=== PATIENT | female | born 1995 | race African-American/Black ===

== ENCOUNTER 2018-06-22 05:01 | Emergency (ER) | payer OTHER ==
[2018-06-22 06:01] LABS: Urine Blood 3+ (NEG); Urine Glucose NEGATIVE (NEG); Urine Protein 1+ (NEG); Urine Specific Gravity 1.025 (1.005-1.030); Urine pH 6.5 (5.0-7.0)
[2018-06-22] MEDS ORDERED: NA CHLORIDE 0.9% 1,000 ML ONE ×2 (06:06→08:30)
[2018-06-22] MEDS ORDERED: KETOROLAC 30 MG/ML INJ ONE (06:06)
[2018-06-22 06:10] LABS: Absolute Lymphocytes (CBC) 1.1 K/uL (0.7-4.9); Absolute Monocytes 0.6 K/uL (0.1-1.3); Absolute Neutrophil 5.4 K/uL (1.8-8.0); Basophils % 0.3 % (0-1.3); Eosinophils % 2.2 % (0-4.4); Hematocrit 27.1 % (36.0-45.0); Lymphocytes % 15.3 % (15.3-44.8); MCV 72.6 fL (80-100); MPV 9.1 fL (7.6-11.3); Monocytes % 8.7 % (3.3-12.3); RBC Red Blood Cell Count 3.73 M/uL (3.86-4.86)
[2018-06-22 06:17] LABS: Urine Bacteria <20 /HPF (<20); Urine Culture Reflex Order REFLEXED; Urine RBC 20-50 /HPF (NONE SEEN); Urine Trichomonas PRESENT (NONE SEEN)
[2018-06-22 06:28] LABS: ALT/SGPT 16 U/L (12-78); AST/SGOT 18 U/L (15-37); Albumin 2.5 g/dL (3.4-5.0); Alkaline Phosphatase 87 U/L (45-117); BUN Blood Urea Nitrogen 8 mg/dL (7-18); Bicarbonate 23 mmol/L (21-32); Bilirubin Direct 0.1 mg/dL (0-0.2); Bilirubin Total 0.3 mg/dL (0.2-1.0); Glucose Level 89 mg/dL (74-106); Lipase 129 U/L (73-393); Potassium 3.7 mmol/L (3.5-5.1); Protein, Total 6.4 g/dL (6.4-8.2); Sodium Level 139 mmol/L (136-145)
[2018-06-22] MEDS ORDERED: metroNIDAZOLE 500 MG TABLET ONE (07:00)
[2018-06-22] MEDS ORDERED: CEFTRIAXONE/SWI 1gm 1 GM/10 ML SYR ONE (07:00)
[2018-06-22] MEDS ORDERED: ACETAMINOPHEN 500 MG TAB ONE (09:39)
--- NOTE | 2018-06-22 14:38 | ER ---
Nurse's Notes [facility] Name: Rosa Tony Age: 22 yrs Sex: Female : 1995 Arrival Date: 06/22/2018 Time: 05:04 Bed 15 Private MD: Diagnosis: Abdominal and pelvic pain Presentation: 06/22 05:09 Presenting complaint: Patient states: Deliver a baby three days ago and no is having ao back pain, side pain and headaches. Patient pain level is 6/10. Transition of care: patient was not received from another setting of care. Onset of symptoms is unknown. Risk Assessment: Do you want to hurt yourself or someone else? Patient reports no desire to harm self or others. Initial Sepsis Screen: Does the patient meet any 2 criteria? No. Patient's initial sepsis screen is negative. Does the patient have a suspected source of infection? No. Patient's initial sepsis screen is negative. Care prior to arrival: None. 05:09 Method Of Arrival: Ambulatory ao 05:30 Acuity: MALATHI 2 bb Triage Assessment: 05:13 General: pt denied having an epidural when delivering her baby 3 day ago.. jd3 LCSW: 05:13 LMP 09/22/2017 ao Historical: - Allergies: 05:12 No Known Allergies; ao - Home Meds: 05:12 Ibuprofen Oral [Active]; ao - PMHx: 05:12 None; ao - PSHx: 05:12 None; ao - Immunization history:: Adult Immunizations up to date. - Social history:: Smoking status: Patient uses tobacco products, denies chronic smoking, but will smoke occasionally. - Ebola Screening: : Patient negative for fever greater than or equal to 101.5 degrees Fahrenheit, and additional compatible Ebola Virus Disease symptoms Patient denies exposure to infectious person Patient denies travel to an Ebola-affected area in the 21 days before illness onset. Screenin:13 Abuse screen: Denies threats or abuse. Nutritional screening: No deficits noted. jd3 Tuberculosis screening: No symptoms or risk factors identified. Fall Risk Ambulatory Aid- None/Bed Rest/Nurse Assist (0 pts). Gait- Normal/Bed Rest/Wheelchair (0 pts) Mental Status- Oriented to own ability (0 pts). Total Kang Fall Scale indicates No Risk (0-24 pts). Assessment: 05:14 General: Appears in no apparent distress. uncomfortable, Behavior is cooperative, ao crying. Pain: Complains of pain in back and a headache. Neuro: Level of Consciousness is awake, alert, Oriented to person, place, time, situation, Appropriate for age Moves all extremities. Full function Speech is normal, Facial symmetry appears normal. Cardiovascular: Capillary refill < 3 seconds Patient's skin is warm and dry. Respiratory: Airway is patent Respiratory effort is even, unlabored, Respiratory pattern is regular, symmetrical. GI: No signs and/or symptoms were reported involving the gastrointestinal system. : Reports Deliver a baby three day ago. No epidural given at deliver. EENT: No signs and/or symptoms were reported regarding the EENT system. Derm: Skin is intact, Skin is pink, warm \T\ dry. normal, Skin temperature is warm. Musculoskeletal: Range of motion: intact in all extremities. 06:30 Reassessment: Patient appears in no apparent distress at this time. Patient and/or ao family updated on plan of care and expected duration. Pain level reassessed. Patient is alert, oriented x 3, equal unlabored respirations, skin warm/dry/pink. waiting on lab work. 07:13 Reassessment: Patient appears in no apparent distress at this time. Patient and/or em family updated on plan of care and expected duration. Pain level reassessed. Patient is alert, oriented x 3, equal unlabored respirations, skin warm/dry/pink. rates pain 6/10, pending ultrasound. 07:50 Reassessment: Patient appears in no apparent distress at this time. ultrasound at em bedside. 09:00 Reassessment: Patient appears in no apparent distress at this time. Patient and/or em family updated on plan of care and expected duration. Pain level reassessed. Patient is alert, oriented x 3, equal unlabored respirations, skin warm/dry/pink. 11:33 Reassessment: Patient appears in no apparent distress at this time. Patient and/or em family updated on plan of care and expected duration. Pain level reassessed. Patient is alert, oriented x 3, equal unlabored respirations, skin warm/dry/pink. pending CT of abdomen Patient states feeling better. 12:38 Reassessment: Patient appears in no apparent distress at this time. Patient and/or em family updated on plan of care and expected duration. Pain level reassessed. Patient is alert, oriented x 3, equal unlabored respirations, skin warm/dry/pink. 12:55 Reassessment: wheeled to CT;. hj Vital Signs: 05:13 BP 146 / 91; Pulse 112; Resp 16; Temp 99.2(O); Pulse Ox 100% on R/A; Weight 72.57 kg; ao Height 5 ft. 1 in. (154.94 cm); Pain 6/10; 06:30 BP 126 / 81; Pulse 98; Resp 16; Pulse Ox 100% on R/A; Pain 0/10; ao 07:13 BP 129 / 89; Pulse 101; Resp 20; Temp 99.1(O); Pulse Ox 100% on R/A; Pain 6/10; em 13:00 BP 108 / 71; Pulse 100; Resp 18; Pulse Ox 99% on R/A; em 13:58 BP 108 / 71; Pulse 101; Resp 16; Temp 98.5(O); Pulse Ox 100% ; mh5 14:56 BP 117 / 83; Pulse 101; Resp 18; Temp 99.0(O); Pulse Ox 100% on R/A; em 05:13 Body Mass Index 30.23 (72.57 kg, 154.94 cm) ao ED Course: 05:04 Patient arrived in ED. ds1 05:09 Gabriel aGrcia, RN is Primary Nurse. ao 05:11 Triage completed. ao 05:12 Arm band placed on right wrist. Patient placed in an exam room, on a stretcher, on ao pulse oximetry, Patient notified of wait time. 05:14 Patient has correct armband on for positive identification. Pulse ox on. NIBP on. ao 05:22 Zoran Cardoso MD is Attending Physician. gs 05:45 Inserted saline lock: 20 gauge in right antecubital area, using aseptic technique. ao Blood collected. 07:08 Report given to JARON Guzman. ao 07:12 Thomas Arroyo LVN is Primary Nurse. em 07:38 Attending Physician role handed off by Zoran Cardoso MD kdr 07:38 Houston Cabrera MD is Attending Physician. kdr 08:11 Ultrasound completed. Patient tolerated well. sg3 08:21 US Pelvis Complete In Process Unspecified. EDMS 12:59 Chest Angio In Process Unspecified. EDMS 13:10 Abdomen In Process Unspecified. EDMS 13:24 CT Chest For PE Angio In Process Unspecified. EDMS 15:01 No provider procedures requiring assistance completed. IV discontinued, intact, em bleeding controlled, No redness/swelling at site. Pressure dressing applied. Administered Medications: 06:09 Drug: TORadol 15 mg Route: IVP; Site: right antecubital; ao 07:00 Follow up: Response: No adverse reaction; Pain is decreased ao 06:09 Drug: NS 0.9% 1000 ml Route: IV; Rate: 1 bolus; Site: right antecubital; ao 07:00 Drug: Rocephin - (cefTRIAXone) 1 grams Route: IVPB; Infused Over: 30 mins; Site: right ao antecubital; 07:30 Follow up: Response: No adverse reaction; IV Status: Completed infusion; IV Intake: 10mlem 07:00 Drug: Flagyl 1 grams Route: PO; ao 08:32 Follow up: Response: No adverse reaction em 08:32 Drug: NS 0.9% 1000 ml Route: IV; Rate: 1 bolus; Site: right antecubital; em 14:55 Follow up: Response: No adverse reaction; IV Status: Completed infusion; IV Intake: em 1000ml Point of Care Testing: Blood Glucose: 05:59 Blood Glucose: 88 mg/dL; ao Ranges: Intake: 07:30 IV: 10ml; Total: 10ml. em 14:55 IV: 1000ml; Total: 1010ml. em Outcome: 14:37 Discharge ordered by . kdr 15:01 Discharged to home ambulatory. em 15:01 Condition: good 15:01 Discharge instructions given to patient, family, Instructed on discharge instructions, follow up and referral plans. medication usage, Demonstrated understanding of instructions, follow-up care, medications, Prescriptions given X 1. 15:03 Patient left the ED. em Signatures: Dispatcher [employer] EDMS Houston Cabrera MD MD kdr Munoz, Edgar, SECURITY INCIDENT RESPONSE SPECIALIST SECURITY INCIDENT RESPONSE SPECIALIST em Priyanka Camarena ds1 Gloria Horne RN RN Armond Key RN RN hj Ortiz, Alex, RN RN ao Martinez, Maria [facility] Zoran Cardoso MD MD gs Davies, Jonathon, RN RN jd3 Godinez, Sarah 3 Corrections: (The following items were deleted from the chart) 05:30 05:09 Acuity: MALATHI 3 ao bb
--- NOTE | 2018-06-22 14:38 | EDPHYS ---
Physician Documentation [facility] Name: Rosa Tony Age: 22 yrs Sex: Female : 1995 Arrival Date: 06/22/2018 Time: 05:04 Bed 15 Private MD: ED Physician Houston Cabrera HPI: 06/22 06:43 This 22 yrs old Black Female presents to ER via Ambulatory with complaints of ab pain. gs 06:43 The patient presents with abdominal pain in the lower abdomen. Onset: The gs symptoms/episode began/occurred yesterday. The symptoms do not radiate. Associated signs and symptoms: Pertinent positives: fever. The symptoms are described as achy. Modifying factors: The symptoms are alleviated by nothing, the symptoms are aggravated by nothing. Severity of pain: At its worst the pain was moderate in the emergency department the pain has improved mildly. The patient has not experienced similar symptoms in the past. 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 - Social history:: Smoking status: Patient uses tobacco products, denies chronic smoking, but will smoke occasionally. - Ebola Screening: : Patient negative for fever greater than or equal to 101.5 degrees Fahrenheit, and additional compatible Ebola Virus Disease symptoms Patient denies exposure to infectious person Patient denies travel to an Ebola-affected area in the 21 days before illness onset. ROS: 06:43 All other systems are negative. gs Exam: 06:43 Head/Face: Normocephalic, atraumatic. Eyes: Pupils equal round and reactive to light, gs extra-ocular motions intact. Lids and lashes normal. Conjunctiva and sclera are non-icteric and not injected. Cornea within normal limits. Periorbital areas with no swelling, redness, or edema. ENT: Nares patent. No nasal discharge, no septal abnormalities noted. Tympanic membranes are normal and external auditory canals are clear. Oropharynx with no redness, swelling, or masses, exudates, or evidence of obstruction, uvula midline. Mucous membranes moist. Neck: Trachea midline, no thyromegaly or masses palpated, and no cervical lymphadenopathy. Supple, full range of motion without nuchal rigidity, or vertebral point tenderness. No Meningismus. Chest/axilla: Normal chest wall appearance and motion. Nontender with no deformity. No lesions are appreciated. Respiratory: Lungs have equal breath sounds bilaterally, clear to auscultation and percussion. No rales, rhonchi or wheezes noted. No increased work of breathing, no retractions or nasal flaring. Back: No spinal tenderness. No costovertebral tenderness. Full range of motion. Skin: Warm, dry with normal turgor. Normal color with no rashes, no lesions, and no evidence of cellulitis. MS/ Extremity: Pulses equal, no cyanosis. Neurovascular intact. Full, normal range of motion. Neuro: Awake and alert, GCS 15, oriented to person, place, time, and situation. Cranial nerves II-XII grossly intact. Motor strength 5/5 in all extremities. Sensory grossly intact. Cerebellar exam normal. Normal gait. 06:43 Constitutional: The patient appears alert, awake. 06:43 Cardiovascular: Rate: tachycardic, Rhythm: regular, Pulses: no pulse deficits are appreciated. 06:43 Abdomen/GI: Inspection: gravid appearance, is noted, Palpation: mild abdominal tenderness, in the suprapubic area and left lower quadrant. Vital Signs: 05:13 BP 146 / 91; Pulse 112; Resp 16; Temp 99.2(O); Pulse Ox 100% on R/A; Weight 72.57 kg; ao Height 5 ft. 1 in. (154.94 cm); Pain 6/10; 06:30 BP 126 / 81; Pulse 98; Resp 16; Pulse Ox 100% on R/A; Pain 0/10; ao 07:13 BP 129 / 89; Pulse 101; Resp 20; Temp 99.1(O); Pulse Ox 100% on R/A; Pain 6/10; em 13:00 BP 108 / 71; Pulse 100; Resp 18; Pulse Ox 99% on R/A; em 13:58 BP 108 / 71; Pulse 101; Resp 16; Temp 98.5(O); Pulse Ox 100% ; mh5 14:56 BP 117 / 83; Pulse 101; Resp 18; Temp 99.0(O); Pulse Ox 100% on R/A; em 05:13 Body Mass Index 30.23 (72.57 kg, 154.94 cm) ao MDM: 05:32 Patient medically screened. gs 06:43 Differential diagnosis: non-specific abd pain, urinary tract infection, endometritis. Data reviewed: vital signs, nurses notes. Response to treatment: the patient's symptoms have markedly improved after treatment. 06/22 05:35 Order name: Urine Microscopic Only; Complete Time: 06:38 gs 06/22 05:35 Order name: Basic Metabolic Panel; Complete Time: 06:38 gs 06/22 05:35 Order name: Blood Culture Adult (2) 06/22 05:35 Order name: CBC with Diff; Complete Time: 06:38 gs 06/22 05:35 Order name: Lactate; Complete Time: 07:03 gs 06/22 05:35 Order name: LFT's; Complete Time: 06:38 06/22 05:35 Order name: Lipase; Complete Time: 06:38 gs 06/22 05:35 Order name: Procalcitonin; Complete Time: 07:03 gs 06/22 05:35 Order name: Protime (+inr); Complete Time: 06:38 gs 06/22 05:45 Order name: US Pelvis Complete 06/22 05:58 Order name: Urine Dipstick--Ancillary (enter results); Complete Time: 06:38 rg2 06/22 06:18 Order name: Urine Culture EDMS 06/22 08:24 Order name: DD; Complete Time: 12:42 kdr 06/22 10:30 Order name: CT Chest For PE Angio kdr 06/22 05:35 Order name: Accucheck; Complete Time: 05:59 gs 06/22 05:35 Order name: Cardiac monitoring; Complete Time: 05:59 gs 06/22 05:35 Order name: EKG - Nurse/Tech; Complete Time: 05:52 gs 06/22 05:35 Order name: IV Saline Lock - Large Bore; Complete Time: 05:53 gs 06/22 05:35 Order name: Labs collected and sent; Complete Time: 05:52 gs 06/22 05:35 Order name: O2 Per Protocol; Complete Time: 05:52 gs 06/22 05:35 Order name: O2 Sat Monitoring; Complete Time: 05:52 06/22 05:35 Order name: Urine Dipstick-Ancillary (obtain specimen); Complete Time: 05:52 06/22 11:10 Order name: CT Abd/Pelvis - Without Cont kdr 06/22 12:47 Order name: Chest Angio EDMS 06/22 13:07 Order name: Abdomen EDMS Administered Medications: 06:09 Drug: TORadol 15 mg Route: IVP; Site: right antecubital; ao 07:00 Follow up: Response: No adverse reaction; Pain is decreased ao 06:09 Drug: NS 0.9% 1000 ml Route: IV; Rate: 1 bolus; Site: right antecubital; ao 07:00 Drug: Rocephin - (cefTRIAXone) 1 grams Route: IVPB; Infused Over: 30 mins; Site: right ao antecubital; 07:30 Follow up: Response: No adverse reaction; IV Status: Completed infusion; IV Intake: 10mlem 07:00 Drug: Flagyl 1 grams Route: PO; ao 08:32 Follow up: Response: No adverse reaction em 08:32 Drug: NS 0.9% 1000 ml Route: IV; Rate: 1 bolus; Site: right antecubital; em 14:55 Follow up: Response: No adverse reaction; IV Status: Completed infusion; IV Intake: em 1000ml Point of Care Testing: Blood Glucose: 05:59 Blood Glucose: 88 mg/dL; ao Ranges: Critical Glucose Levels:Adult <50 mg/dl or >400 mg/dl <40 mg/dl or >180 mg/dl Disposition: 06/22/18 14:37 Discharged to Home. Impression: Abdominal and pelvic pain. - Condition is Stable. - Discharge Instructions: Abdominal Pain, Adult, [id number]. - Prescriptions for Tramadol 50 mg Oral Tablet - take 1 tablet by ORAL route every 8 hours as needed; 12 tablet. - Medication Reconciliation Form, Thank You Letter form. - Follow up: Private Physician; When: 2 - 3 days; Reason: If symptoms return, Further diagnostic work-up, Recheck today's complaints, Continuance of care, Re-evaluation by your physician. - Problem is new. - Symptoms have improved. Signatures: Dispatcher [employer] EDHouston Stokes MD MD kdr Munoz, Edgar, ASSOCIATE PROFESSOR OF PATHOLOGY ASSOCIATE PROFESSOR OF PATHOLOGY em Gabriel Garcia, RN RN Zoran Gordon MD MD gs Corrections: (The following items were deleted from the chart) 15:03 14:37 06/22/2018 14:37 Discharged to Home. Impression: Abdominal and pelvic pain. em Condition is Stable. Forms are Medication Reconciliation Form, Thank You Letter, Antibiotic Education, Prescription Opioid Use. Follow up: Private Physician; When: 2 - 3 days; Reason: If symptoms return, Further diagnostic work-up, Recheck today's complaints, Continuance of care, Re-evaluation by your physician. Problem is new. Symptoms have improved. kdr
--- NOTE | 2018-06-22 14:41 | RAD REPORT ---
EXAM DESCRIPTION: US - Pelvis Complete - 06/22/2018 8:20 am CLINICAL HISTORY: ABD PAIN<Reason For Exam>ABD PAIN Patient is 3 days Preliminary findings were provided at the time of the study. COMPARISON: No comparisons<Comparisons> TECHNIQUE: Transabdominal pelvic sonography was performed. FINDINGS: Both ovaries are identified. Normal blood flow pattern on Doppler evaluation within the ov alka stroma. No dominant solid or cystic ovarian or adnexal finding. No abnormal blood or free fluid in the cul-de-sac. Uterus is 20 x 6.5 x 12.2 cm. This is not abnormal for 3 days . No myometrial abnormality s een. Endometrial stripe is 3-4 mm in maximum thickness. There is increased echogenicity along the end ometrial stripe. In the lower uterine segment and cervical canal region there is some dirty or hetero geneous posterior acoustic shadowing. Patient likely has a minimal amount of blood in some air in the endometrial cavity. This would not be unusual given the recent delivery date. No large hematoma or m ass. No retained placental tissue identifiable. IMPRESSION: Small amount of hemorrhagic material and air is seen within the endometrial cavity not f elt to be abnormal for recent status. No hematoma or retained placental tissue seen. No ovarian, adnexal or cul-de-sac abnormality.
--- NOTE | 2018-06-22 14:41 | RAD REPORT ---
EXAM DESCRIPTION: CT - Chest Angio - 06/22/2018 11:48 am CLINICAL HISTORY: BACK PAIN, SIDE PAIN, HEADACHE<Reason For Exam>BACK PAIN, SIDE PAIN, HEADACHE Elevated D-dimer, recent status COMPARISON: No comparisons<Comparisons> TECHNIQUE: Dynamically enhanced axial 3 mm thick images of the chest were obtained during administra tion of 150 mL Isovue 370 IV contrast. Coronal and oblique reconstruction images were generated and r eviewed. Exam utilizes a protocol for optimal evaluation of pulmonary arterial tree. All CT scans are performed using dose optimization technique as appropriate and may include automated exposure control or mA/KV adjustment according to patient size. Due to technical failure is a supervisor stripping system a report could not be immediately generated. Findi ngs were telephoned to the referring clinician at the time of the study. FINDINGS: Pulmonary arteries are normal. No emboli or other suspicious finding. No acute or signific ant aorta findings. No mass or infiltrate in the lung parenchyma. No pleural thickening or pleural effusion. No pneumotho rax. No abnormal mediastinal or hilar masses or lymphadenopathy seen. No chest wall mass or abnormal axill gina lymphadenopathy. Heart size is prominent. No pericardial thickening or effusion. IMPRESSION: No pulmonary embolus. Heart size is upper normal with no pericardial thickening or effusion. No interstitial or alveolar ed wan pattern.
--- NOTE | 2018-06-22 14:42 | RAD REPORT ---
EXAM DESCRIPTION: CT - Abdomen Pelvis Wo Contrast - 06/22/2018 1:02 pm CLINICAL HISTORY: llq and flank pain<Reason For Exam>llq and flank pain COMPARISON: No comparisons<Comparisons> TECHNIQUE: Axial [address] imaging of the abdomen and pelvis was performed without IV contrast. CT pulmonary angio study was performed shortly before this examination. No oral contrast administered . All CT scans are performed using dose optimization technique as appropriate and may include automated exposure control or mA/KV adjustment according to patient size. FINDINGS: No suspicious findings in the lung bases. No pericardial thickening or effusion. The liver, spleen and pancreas show no suspicious findings on non-contrast imaging. Gallbladder and b iliary tree are also without suspicious finding. No hydronephrosis or suspicious renal mass. No significant adrenal finding. Isodense masses and pyel onephritis cannot be excluded. There is contrast in the renal collecting systems from the earlier PE study. Well filled urinary bladder shows no suspicious findings. No evidence for a calculus. No dilated bowel loops or bowel wall thickening. No free air, free fluid or inflammatory stranding. N o hernia, mass or bulky lymphadenopathy. No suspicious bony findings. Enlarged uterus is present not unexpected for 3 day status. A few punctate air densities a re present within the endometrial cavity also not unexpected given recent delivery. On non IV contras t imaging, no CT finding to suspect retained placental tissue or products of conception. IMPRESSION: Non-contrast enhanced CT abdomen and pelvis imaging show no significant or suspicious fi nding. No abnormality found to explain left lower quadrant or flank pain. Full findings detailed in the body of the report. Full assessment is limited is the absence of IV contrast.
[2018-06-22 15:15] VITALS: O2SAT 100
[2018-06-22 15:17] VITALS: BP 117/83; TEMP 99
--- NOTE | 2018-06-24 07:58 | EKG ---
Test Date: 2018-06-22 Test Time: 05:45:05 Special Day Class Teacher: CHANDNI MEASUREMENT RESULTS: Intervals: Rate: 112 TX: 140 QRSD: 74 QT: 316 QTc: 431 Taylor: P: 56 TX: 140 QRS: 34 T: 33 INTERPRETIVE STATEMENTS: Sinus tachycardia Otherwise normal ECG No previous ECG available for comparison Electronically Signed On 06-24-18 07:55:24 CDT by Lucio Stanton
== END 2018-06-22 15:03 | disposition home or self-care (01) ==
LOC: ER 05:01
DX: R10.9 Unspecified abdominal pain (principal); R10.2 Pelvic and perineal pain; F17.200 Nicotine dependence, unspecified, uncomplicated
CPT/HCPCS: 36415; 71275; 74176; 76856; 80048; 80076; 81003; 81015; 82962; 83605; 83690; 84145; 85025; 85379; 85610; 87040; 87086; 87088; 93005; 96361; 96365; 96375; 99284; J0696; J7030; Q9967

== ENCOUNTER 2020-01-03 20:18 | Emergency (ER) | payer OTHER ==
--- OUTSIDE RECORDS SUMMARY | 2020-01-03 20:21 | XMS REPORT ---
:1995 Author Organization [facility] Address [address] [place] [address] [place] [id number] Care Team Providers Name Role Phone Unavailable Unavailable Unavailable Problems This patient has no known problems. Allergies, Adverse Reactions, Alerts This patient has no known allergies or adverse reactions. Medications This patient has no known medications.
--- NOTE | 2020-01-03 20:53 | ER ---
Nurse's Notes [facility] Name: Rosa Tony Age: 24 yrs Sex: Female : 1995 Arrival Date: 01/03/2020 Time: 20:27 Bed Waiting Private MD: Diagnosis: Cellulitis of left finger Presentation: 01/02 20:37 Chief complaint: Patient states: she got her nails done and believes she has an aa1 infected finger. Swelling noted to L index finger. Coronavirus screen: The patient has NOT traveled to a country currently being monitored by the [facility] within the last 14 days. Proceed with normal triage procedures. Ebola Screen: No symptoms or risks identified at this time. Initial Sepsis Screen: Does the patient meet any 2 criteria? No. Patient's initial sepsis screen is negative. Does the patient have a suspected source of infection? No. Patient's initial sepsis screen is negative. Risk Assessment: Do you want to hurt yourself or someone else? Patient reports no desire to harm self or others. Care prior to arrival: None. 20:37 Method Of Arrival: Ambulatory aa1 20:37 Acuity: MALATHI 5 aa1 Triage Assessment: 20:39 General: Appears in no apparent distress. comfortable, Behavior is calm, cooperative, aa1 appropriate for age. 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 - Social history:: Smoking status: Patient denies any tobacco usage or history of. Screenin:43 Abuse screen: Denies threats or abuse. Denies injuries from another. Nutritional aa1 screening: No deficits noted. Tuberculosis screening: No symptoms or risk factors identified. Fall Risk None identified. Assessment: 20:43 General: Appears in no apparent distress. comfortable, Behavior is calm, cooperative, aa1 appropriate for age. Pain: Complains of pain in dorsal aspect of distal phalanx of left index finger and left index fingernail. Neuro: Level of Consciousness is awake, alert, obeys commands, Oriented to person, place, time, situation. Respiratory: Airway is patent Respiratory effort is even, unlabored, Respiratory pattern is regular, symmetrical. GI: No signs and/or symptoms were reported involving the gastrointestinal system. : No signs and/or symptoms were reported regarding the genitourinary system. EENT: No signs and/or symptoms were reported regarding the EENT system. Derm: Skin is intact, is healthy with good turgor, Skin is pink, warm \T\ dry. redness noted to tip of L index finger. Musculoskeletal: Circulation, motion, and sensation intact. Capillary refill < 3 seconds, Swelling present in dorsal aspect of distal phalanx of left index finger. Vital Signs: 20:39 BP 150 / 95; Pulse 71; Resp 18; Temp 97.3; Pulse Ox 100% on R/A; Weight 79.38 kg (R); aa1 Height 5 ft. 2 in. (157.48 cm); Pain 8/10; 20:39 Body Mass Index 32.01 (79.38 kg, 157.48 cm) aa1 ED Course: 20:27 Patient arrived in ED. aa1 20:39 Triage completed. aa1 20:39 Arm band placed on right wrist. aa1 20:43 Patient has correct armband on for positive identification. aa1 20:43 No provider procedures requiring assistance completed. Patient did not have IV access aa1 during this emergency room visit. 20:44 Rock Heredia MD is Attending Physician. tw4 21:00 Jeanie Frank RN is Primary Nurse. aa1 Administered Medications: 20:43 Drug: Clindamycin 300 mg Route: PO; aa1 20:43 Follow up: Response: Medication administered at discharge. aa1 Outcome: 20:52 Discharge ordered by . tw4 21:00 Discharged to home ambulatory. aa1 21:00 Condition: good 21:00 Discharge instructions given to patient, Instructed on discharge instructions, follow up and referral plans. medication usage, Demonstrated understanding of instructions, follow-up care, medications, Prescriptions given X 1. 21:00 Patient left the ED. aa1 Signatures: Jeanie Frank, MATTHEW RN aa1 Rock Heredia MD MD tw4
--- NOTE | 2020-01-03 20:53 | EDPHYS ---
Physician Documentation [facility] Name: Rosa Tony Age: 24 yrs Sex: Female : 1995 Arrival Date: 01/03/2020 Time: 20:27 Bed Waiting Private MD: ED Physician Rock Heredia HPI: 01/02 20:47 This 24 yrs old Black Female presents to ER via Ambulatory with complaints of infected tw4 finger. 20:47 The patient or guardian reports pain. The complaints affect the DIP of left index tw4 finger. Context: The problem was sustained at a nail salon. Onset: The symptoms/episode began/occurred 2 day(s) ago. Modifying factors: The symptoms are alleviated by nothing, the symptoms are aggravated by nothing. Associated signs and symptoms: The patient has no apparent associated signs or symptoms. Severity of symptoms: At their worst the symptoms were mild, in the emergency department the symptoms are unchanged. The patient has not experienced similar symptoms in the past. 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 - Social history:: Smoking status: Patient denies any tobacco usage or history of. ROS: 20:47 Constitutional: Negative for fever, chills, and weight loss, Eyes: Negative for injury, tw4 pain, redness, and discharge. 20:47 Cardiovascular: Negative for chest pain, palpitations, and edema, Respiratory: Negative for shortness of breath, cough, wheezing, and pleuritic chest pain, Abdomen/GI: Negative for abdominal pain, nausea, vomiting, diarrhea, and constipation, Back: Negative for injury and pain. 20:47 Skin: Positive for cellulitis, erythema. Exam: 20:47 Constitutional: This is a well developed, well nourished patient who is awake, alert, tw4 and in no acute distress. Head/Face: Normocephalic, atraumatic. Cardiovascular: Regular rate and rhythm with a normal S1 and S2. No gallops, murmurs, or rubs. Normal PMI, no JVD. No pulse deficits. Respiratory: Lungs have equal breath sounds bilaterally, clear to auscultation and percussion. No rales, rhonchi or wheezes noted. No increased work of breathing, no retractions or nasal flaring. Abdomen/GI: Soft, non-tender, with normal bowel sounds. No distension or tympany. No guarding or rebound. No evidence of tenderness throughout. 20:47 Skin: cellulitis, that is minimal, well demarcated, on the left index fingernail. Vital Signs: 20:39 BP 150 / 95; Pulse 71; Resp 18; Temp 97.3; Pulse Ox 100% on R/A; Weight 79.38 kg (R); aa1 Height 5 ft. 2 in. (157.48 cm); Pain 8/10; 20:39 Body Mass Index 32.01 (79.38 kg, 157.48 cm) aa1 MDM: 20:47 Differential diagnosis: cellulitis paronychia. Data reviewed: vital signs, nurses tw4 notes. Data interpreted: Pulse oximetry: Interpretation: normal. Counseling: I had a detailed discussion with the patient and/or guardian regarding: the historical points, exam findings, and any diagnostic results supporting the discharge/admit diagnosis. Special discussion: I discussed with the patient/guardian in detail that at this point there is no indication for admission to the hospital. It is understood, however, that if the symptoms persist or worsen the patient needs to return immediately for re-evaluation. 20:52 Patient medically screened. tw4 Administered Medications: 20:43 Drug: Clindamycin 300 mg Route: PO; aa1 20:43 Follow up: Response: Medication administered at discharge. aa1 Disposition: 01/03/20 20:52 Discharged to Home. Impression: Cellulitis of left finger. - Condition is Stable. - Discharge Instructions: Cellulitis, Adult, Paronychia, [id number]. - Prescriptions for Cleocin 300 mg Oral Capsule - take 1 capsule by ORAL route every 6 hours for 7 days; 28 capsule. - Medication Reconciliation Form, Thank You Letter, Antibiotic Education, Prescription Opioid Use form. - Follow up: Private Physician; When: Upon discharge from the Emergency Department; Reason: Recheck today's complaints, Continuance of care, Re-evaluation by your physician. - Problem is new. - Symptoms have improved. Signatures: Autenrieth, Jeanie, RN RN aa1 Rock Heredia MD MD tw4 Corrections: (The following items were deleted from the chart) 21:00 20:52 01/03/2020 20:52 Discharged to Home. Impression: Cellulitis of left finger. aa1 Condition is Stable. Forms are Medication Reconciliation Form, Thank You Letter, Antibiotic Education, Prescription Opioid Use. Follow up: Private Physician; When: Upon discharge from the Emergency Department; Reason: Recheck today's complaints, Continuance of care, Re-evaluation by your physician. Problem is new. Symptoms have improved. tw4
[2020-01-03 21:08] VITALS: BP 150/95; TEMP 97.3; O2SAT 100
== END 2020-01-03 21:00 | disposition home or self-care (01) ==
LOC: ER 20:18
DX: L03.012 Cellulitis of left finger (principal)
CPT/HCPCS: 99283

== ENCOUNTER 2021-03-11 16:03 | Emergency (ER) | payer OTHER ==
--- OUTSIDE RECORDS SUMMARY | 2021-03-11 16:06 | XMS REPORT | Continuity of Care Document ---
:1995 Author Organization [facility] t Address [address] [place] [address] Dr. Kruse [address] [place] [id number] Care Team Providers Name Role Phone Unavailable Unavailable Unavailable Problems This patient has no known problems. Allergies, Adverse Reactions, Alerts This patient has no known allergies or adverse reactions. Medications This patient has no known medications. Procedures This patient has no known procedures. Results This patient has no known results.
[2021-03-11 16:36] LABS: Urine Blood Negative (Negative); Urine Glucose Negative (Negative); Urine Protein Negative (Negative); Urine Specific Gravity 1.025 (1.005-1.030)
[2021-03-11 17:01] LABS: Absolute Lymphocytes (CBC) 1.1 K/uL (0.7-4.9); Basophils % 0.6 % (0-1.3); Hematocrit 38.3 % (36.0-45.0); Lymphocytes % 21.1 % (15.3-44.8); MPV 9.7 fL (7.6-11.3); RBC Red Blood Cell Count 4.64 M/uL (3.86-4.86)
[2021-03-11 17:08] LABS: BUN Blood Urea Nitrogen 16 mg/dL (7-18); Bicarbonate 27 mmol/L (21-32); Glucose Level 75 mg/dL (74-106); Potassium 3.8 mmol/L (3.5-5.1); Sodium Level 142 mmol/L (136-145)
[2021-03-11] MEDS ORDERED: NA CHLORIDE 0.9% 1,000 ML ONE (17:30)
[2021-03-11] MEDS ORDERED: KETOROLAC 30 MG/ML INJ ONE (17:30)
[2021-03-11 17:52] LABS: Urine Bacteria 20-50 /HPF (<20); Urine RBC <5 /HPF (NONE SEEN)
[2021-03-11 17:53] LABS: Urine Amorphous Sediment 1+ /HPF (NONE SEEN)
--- NOTE | 2021-03-11 17:53 | RAD REPORT ---
EXAM DESCRIPTION: CT - Abdomen Pelvis W Contrast - 03/11/2021 5:32 pm CLINICAL HISTORY: ABD PAIN COMPARISON: No comparisons TECHNIQUE: Biphasic, helical CT imaging of the abdomen and pelvis was performed following 100 ml non -ionic IV contrast. No oral contrast was given. All CT scans are performed using dose optimization technique as appropriate and may include automated exposure control or mA/KV adjustment according to patient size. FINDINGS: No suspicious findings in the lung bases. The liver, spleen, and pancreas show no suspicious findings. Fatty infiltration of the liver. Gallbla dder and biliary tree are also without suspicious finding. Symmetric renal function is seen with no hydronephrosis or suspicious renal mass. No pyelonephritis o r acute parenchymal process. No bladder abnormalities. No adrenal abnormalities. No uterine abnormality. Left ovary appears to be normal. In the cul de sac posterior to the uterus th ere is a large complex 6.7 centimeter cystic mass. This is believed to arise from the right ovary. Th is could be a large complex hemorrhagic cyst. Cystadenoma would be a possibility. No calcification or fat component. A more aggressive ovarian process is lesser in likelihood. No dilated bowel loops or bowel wall thickening. No appendicitis. No free air, free fluid or inflamma tory stranding. No hernia, mass or bulky lymphadenopathy. No suspicious bony findings. IMPRESSION: A complex 6.7 centimeter cystic mass is present in the cul de sac posterior to the uteru s. This probably is right ovarian or paraovarian in origin. Complex hemorrhagic cyst or cystadenoma are possibilities. Malignant etiology would be unlikely in a patient this age. If no direct visualization is contemplated, follow-up sonography in 2-3 months cou ld be performed to evaluate for involution. No acute abnormality is seen. No acute GI process. The appendix is normal.
--- NOTE | 2021-03-11 18:27 | EDPHYS ---
Physician Documentation [facility] Name: Rosa Tony Age: 25 yrs Sex: Female : 1995 Arrival Date: 03/11/2021 Time: 16:08 Bed 7 Private MD: ED Physician Houston Cabrera HPI: 03/11 23:54 This 25 yrs old Black Female presents to ER via Ambulatory with complaints of Abdominal kb Pain. 23:54 The patient has not experienced similar symptoms in the past. The patient has not kb recently seen a physician. 23:54 The patient presents with abdominal pain in the lower abdomen. Onset: The kb symptoms/episode began/occurred 1 week(s) ago. The symptoms do not radiate. Associated signs and symptoms: Pertinent positives: diarrhea, nausea. The symptoms are described as constant. Modifying factors: The symptoms are alleviated by nothing, the symptoms are aggravated by nothing. Severity of pain: At its worst the pain was mild moderate in the emergency department the pain is unchanged. Pt reports lower abd pain that started on right a week ago and now is across lower abd . 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 - Social history:: Smoking status: Patient denies any tobacco usage or history of. ROS: 23:53 Constitutional: Negative for fever, chills, and weight loss. kb 23:53 Abdomen/GI: Positive for abdominal pain, nausea, diarrhea. 23:53 All other systems are negative. Exam: 23:53 Constitutional: This is a well developed, well nourished patient who is awake, alert, kb and in no acute distress. ENT: Moist Mucous membranes Respiratory: Respirations even and unlabored. No increased work of breathing, no retractions or nasal flaring. Skin: Warm, dry with normal turgor. Normal color. MS/ Extremity: Pulses equal, no cyanosis. Neurovascular intact. Full, normal range of motion. Neuro: Awake and alert, GCS 15, oriented to person, place, time, and situation. Moves all extremities. Normal gait. Psych: Awake, alert, with orientation to person, place and time. Behavior, mood, and affect are within normal limits. 23:53 Abdomen/GI: Inspection: abdomen appears normal, Bowel sounds: normal, in all quadrants, Palpation: soft, in all quadrants, mild abdominal tenderness, in the right lower quadrant and left lower quadrant. Vital Signs: 16:18 BP 135 / 90; Pulse 87; Resp 18; Temp 97.9; Pulse Ox 98% on R/A; Weight 86.18 kg; Height em 5 ft. 2 in. (157.48 cm); Pain 8/10; 16:46 BP 134 / 85; Pulse 87; Resp 18; Temp 98.5(TE); Pulse Ox 100% on R/A; Weight 86.18 kg; ld1 Height 5 ft. 2 in. (157.48 cm); Pain 8/10; 17:17 BP 114 / 71; Pulse 70; Resp 18; Pulse Ox 100% on R/A; ld1 18:03 BP 118 / 74; Pulse 85; Resp 18; Pulse Ox 100% on R/A; ld1 16:46 Body Mass Index 34.75 (86.18 kg, 157.48 cm) ld1 MDM: 16:31 Patient medically screened. kb 23:52 Data reviewed: vital signs, nurses notes. Data interpreted: Pulse oximetry: on room air kb is 100 %. Interpretation: normal. Counseling: I had a detailed discussion with the patient and/or guardian regarding: the historical points, exam findings, and any diagnostic results supporting the discharge/admit diagnosis, the need for outpatient follow up, a family practitioner, to return to the emergency department if symptoms worsen or persist or if there are any questions or concerns that arise at home. 03/11 16:31 Order name: Basic Metabolic Panel; Complete Time: 17:11 kb 03/11 16:31 Order name: CBC with Diff; Complete Time: 17:03 kb 03/11 16:31 Order name: Urine Microscopic Only; Complete Time: 18:01 kb 03/11 16:36 Order name: Urine Dipstick-Ancillary; Complete Time: 16:42 EDMS 03/11 16:38 Order name: Urine --Ancillary (enter results) ds4 03/11 16:38 Order name: Urine --Ancillary; Complete Time: 23:52 EDMS 03/11 16:31 Order name: IV Saline Lock; Complete Time: 16:46 kb 03/11 16:31 Order name: Labs collected and sent; Complete Time: 16:46 kb 03/11 16:31 Order name: Urine Test (obtain specimen); Complete Time: 16:37 kb 03/11 16:31 Order name: Urine Dipstick-Ancillary (obtain specimen); Complete Time: 16:37 kb 03/11 17:04 Order name: CT Abd/Pelvis - IV Contrast Only; Complete Time: 18:01 kb 03/11 17:54 Order name: Urine Culture EDMS Administered Medications: 17:15 Drug: NS 0.9% 1000 ml Route: IV; Rate: 1000 ml; Site: right antecubital; ld1 18:40 Follow up: Response: No adverse reaction; IV Status: Completed infusion ld1 17:16 Drug: TORadol (ketorolac) 30 mg Route: IVP; Site: right antecubital; ld1 17:30 Follow up: Response: No adverse reaction ld1 Disposition: 03/12 13:16 Co-signature as Attending Physician, Houston Cabrera MD I agree with the assessment and kdr plan of care. Disposition: 03/11/21 18:26 Discharged to Home. Impression: Unspecified ovarian cysts. - Condition is Stable. - Discharge Instructions: Ovarian Cyst, [id number]. - Prescriptions for Diclofenac Sodium 75 mg Oral Tablet, Delayed Release (E.C.) - take 1 tablet by ORAL route 2 times per day As needed; 30 tablet. - Medication Reconciliation Form, Thank You Letter, Antibiotic Education, Prescription Opioid Use form. - Follow up: Emergency Department; When: As needed; Reason: Worsening of condition. Follow up: Private Physician; When: 2 - 3 days; Reason: Recheck today's complaints, Continuance of care, Re-evaluation by your physician. Signatures: Dispatcher [employer] EDMD Jelena Tony, Jocelyn Metz RN Houston Cruz MD MD kdr Munoz, Edgar, RN RN em Dibbern, Lauren, RN RN ld1 Corrections: (The following items were deleted from the chart) 03/11 18:52 18:26 03/11/2021 18:26 Discharged to Home. Impression: Unspecified ovarian cysts. sv Condition is Stable. Forms are Medication Reconciliation Form, Thank You Letter, Antibiotic Education, Prescription Opioid Use. Follow up: Emergency Department; When: As needed; Reason: Worsening of condition. Follow up: Private Physician; When: 2 - 3 days; Reason: Recheck today's complaints, Continuance of care, Re-evaluation by your physician. kb
--- NOTE | 2021-03-11 18:27 | ER ---
Nurse's Notes [facility] Name: Rosa Tony Age: 25 yrs Sex: Female : 1995 Arrival Date: 03/11/2021 Time: 16:08 Bed 7 Private MD: Diagnosis: Unspecified ovarian cysts Presentation: 03/11 16:18 Chief complaint: Patient states: right flank pain that started 1 week ago, and today em started having pelvic pain after sneezing, felt like period cramps, denies nausea/vomiting or fever, reports loose stool, had a UA done on Sunday and was told there was no bacteria in urine only blood. Coronavirus screen: Client denies travel out of the [place] in the last 14 days. Ebola Screen: Patient negative for fever greater than or equal to 101.5 degrees Fahrenheit, and additional compatible Ebola Virus Disease symptoms Patient denies exposure to infectious person. Patient denies travel to an Ebola-affected area in the 21 days before illness onset. No symptoms or risks identified at this time. Initial Sepsis Screen: Does the patient meet any 2 criteria? No. Patient's initial sepsis screen is negative. Does the patient have a suspected source of infection? No. Patient's initial sepsis screen is negative. Risk Assessment: Do you want to hurt yourself or someone else? Patient reports no desire to harm self or others. Onset of symptoms was March 11, 2021. 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 - Social history:: Smoking status: Patient denies any tobacco usage or history of. Screenin:46 Abuse screen: Denies threats or abuse. Denies injuries from another. Nutritional ld1 screening: No deficits noted. Tuberculosis screening: No symptoms or risk factors identified. Fall Risk IV access (20 points). Total Kang Fall Scale indicates No Risk (0-24 pts). Assessment: 16:46 General: Appears in no apparent distress. comfortable, Behavior is calm, cooperative, ld1 appropriate for age. Pain: Complains of pain in right lower quadrant and left lower quadrant Pain does not radiate. Pain currently is 8 out of 10 on a pain scale. Quality of pain is described as burning, aching, Pain began 2-3 days ago. Is continuous. Neuro: Level of Consciousness is awake, alert, obeys commands, Oriented to person, place, time, situation, Appropriate for age. Cardiovascular: Capillary refill < 3 seconds Patient's skin is warm and dry. Respiratory: Airway is patent Respiratory effort is even, unlabored, Respiratory pattern is regular, symmetrical. GI: Abdomen is round non-distended, Bowel sounds present X 4 quads. Abd is soft X 4 quads Abdomen is tender to palpation in right lower quadrant. : Reports hematuria. EENT: No signs and/or symptoms were reported regarding the EENT system. Derm: No signs and/or symptoms reported regarding the dermatologic system. Musculoskeletal: No signs and/or symptoms reported regarding the musculoskeletal system. 17:17 Reassessment: Patient appears in no apparent distress at this time. No changes from ld1 previously documented assessment. Patient and/or family updated on plan of care and expected duration. Pain level reassessed. Patient is alert, oriented x 3, equal unlabored respirations, skin warm/dry/pink. 18:03 Reassessment: Patient appears in no apparent distress at this time. Patient and/or ld1 family updated on plan of care and expected duration. Pain level reassessed. Vital Signs: 16:18 BP 135 / 90; Pulse 87; Resp 18; Temp 97.9; Pulse Ox 98% on R/A; Weight 86.18 kg; Height em 5 ft. 2 in. (157.48 cm); Pain 8/10; 16:46 BP 134 / 85; Pulse 87; Resp 18; Temp 98.5(TE); Pulse Ox 100% on R/A; Weight 86.18 kg; ld1 Height 5 ft. 2 in. (157.48 cm); Pain 8/10; 17:17 BP 114 / 71; Pulse 70; Resp 18; Pulse Ox 100% on R/A; ld1 18:03 BP 118 / 74; Pulse 85; Resp 18; Pulse Ox 100% on R/A; ld1 16:46 Body Mass Index 34.75 (86.18 kg, 157.48 cm) ld1 ED Course: 16:08 Patient arrived in ED. mr 16:14 ChavoJelena, MARIB[facility]LL [facility] kb 16:14 Houston Cabrera MD is Attending Physician. kb 16:21 Triage completed. em 16:22 Arm band placed on. em 16:27 Roberta Pulido, RN is Primary Nurse. ld1 16:30 No provider procedures requiring assistance completed. Inserted saline lock: 22 gauge ld1 in right antecubital area, using aseptic technique. Blood collected. 16:46 Patient has correct armband on for positive identification. Placed in gown. Bed in low ld1 position. Call light in reach. Side rails up X 1. Pulse ox on. NIBP on. Door closed. Noise minimized. Warm blanket given. 17:32 CT Abd/Pelvis - IV Contrast Only In Process Unspecified. EDMS 17:52 Urine --Ancillary (enter results) Sent. hb 19:02 IV discontinued, bleeding controlled, No redness/swelling at site. ld1 Administered Medications: 17:15 Drug: NS 0.9% 1000 ml Route: IV; Rate: 1000 ml; Site: right antecubital; ld1 18:40 Follow up: Response: No adverse reaction; IV Status: Completed infusion ld1 17:16 Drug: TORadol (ketorolac) 30 mg Route: IVP; Site: right antecubital; ld1 17:30 Follow up: Response: No adverse reaction ld1 Outcome: 18:26 Discharge ordered by MD. kb 18:52 Patient left the ED. sv 18:52 Condition: stable ld1 18:52 Discharged to home ambulatory. ld1 18:52 Instructed on discharge instructions, follow up and referral plans. medication usage, Demonstrated understanding of instructions, follow-up care, medications. Signatures: Dispatcher [employer] EDMS Jelena Tony FNP-C MUSIC MANAGER-CkJocelyn Mcgowan RN RN sv Rivera, Mary mr Thomas Arroyo RN RN Alissa Lee RN RN Roberta Pulido, RN RN ld1 Corrections: (The following items were deleted from the chart) 16:40 16:18 Chief complaint: Patient states: right flank pain that started 1 week ago, and em today started having pelvic castillo after sneezing, felt like period cramps, denies nausea/vomiting, reports loose stool, denies fever, had a UA done on Sunday and was told there was no bacteria in urine only blood em 17:16 17:15 TORadol (ketorolac) 30 mg IVP in right upper arm ld1 ld1
[2021-03-11 18:57] LABS: Urine Specific Gravity/Preg 1.025 (1.005-1.030)
[2021-03-11 19:32] VITALS: BP 118/74; O2SAT 100
== END 2021-03-11 18:52 | disposition home or self-care (01) ==
LOC: ER 16:03
DX: N83.209 Unspecified ovarian cyst, unspecified side (principal)
CPT/HCPCS: 96361; 87088; 85025; 87086; 80048; 36415; 81025; 74177; 96374; 99284; Q9967; J7030; 81003; 81015

== ENCOUNTER 2021-06-23 14:11 | Emergency (ER) | payer OTHER ==
--- OUTSIDE RECORDS SUMMARY | 2021-06-23 14:14 | XMS REPORT | Continuity of Care Document ---
:1995 Author Organization [facility] t Address [address] [place] [address] Dr. Kruse [address] [place] [id number] Care Team Providers Name Role Phone Unavailable Unavailable Unavailable Problems This patient has no known problems. Allergies, Adverse Reactions, Alerts This patient has no known allergies or adverse reactions. Medications This patient has no known medications. Procedures This patient has no known procedures. Results This patient has no known results.
--- NOTE | 2021-06-23 14:35 | EDPHYS ---
Physician Documentation [facility] Name: Rosa Tony Age: 25 yrs Sex: Female : 1995 Arrival Date: 06/23/2021 Time: 14:13 Bed Waiting Private MD: MISSY Physician Jesus Echavarria HPI: 06/23 17:09 This 25 yrs old Black Female presents to ER via Ambulatory with complaints of Ear Pain. kb 17:09 The patient presents with drainage, that is bloody, pain, mild. The complaints affect kb the left ear. Onset: The symptoms/episode began/occurred 2 day(s) ago, and became worse today. Modifying factors: The symptoms are alleviated by nothing, the symptoms are aggravated by nothing. Associated signs and symptoms: The patient has no apparent associated signs or symptoms. Severity of symptoms: At their worst the symptoms were mild in the emergency department the symptoms are unchanged. The patient has not experienced similar symptoms in the past. The patient has not recently seen a physician. Pt reports bilateral ear pain for 2 days. Believes left TM ruptured today because there has been blood drainage. 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 - Social history:: Smoking status: Patient denies any tobacco usage or history of. ROS: 17:09 Constitutional: Negative for fever, chills, and weight loss. kb 17:09 ENT: Positive for drainage from ear(s), ear pain. 17:09 All other systems are negative. Exam: 17:09 Constitutional: This is a well developed, well nourished patient who is awake, alert, kb and in no acute distress. Head/Face: Normocephalic, atraumatic. Respiratory: Respirations even and unlabored. No increased work of breathing, no retractions or nasal flaring. Skin: Warm, dry with normal turgor. Normal color. MS/ Extremity: Pulses equal, no cyanosis. Neurovascular intact. Full, normal range of motion. Neuro: Awake and alert, GCS 15, oriented to person, place, time, and situation. Moves all extremities. Normal gait. Psych: Awake, alert, with orientation to person, place and time. Behavior, mood, and affect are within normal limits. 17:09 ENT: TM's: erythema, that is mild, on the right, fluid levels, on the right. 17:09 ENT: TM's: rupture, on the left. kb Vital Signs: 14:45 BP 136 / 102; Pulse 95; Resp 18; Temp 97.9(TE); Pulse Ox 100% on R/A; Weight 84.82 kg kg (R); Height 5 ft. 1 in. (154.94 cm) (R); Pain 10/10; 14:45 Body Mass Index 35.33 (84.82 kg, 154.94 cm) kg MDM: 14:26 Patient medically screened. kb 17:08 Data reviewed: vital signs, nurses notes. Data interpreted: Pulse oximetry: on room air kb is 100 %. Interpretation: normal. Counseling: I had a detailed discussion with the patient and/or guardian regarding: the historical points, exam findings, and any diagnostic results supporting the discharge/admit diagnosis, the need for outpatient follow up, an ENT specialist, to return to the emergency department if symptoms worsen or persist or if there are any questions or concerns that arise at home. Administered Medications: No medications were administered Disposition: 06/24 08:26 Co-signature as Attending Physician, Jesus Echavarria MD I agree with the assessment and jorge plan of care. Disposition Summary: 06/23/21 14:35 Discharge Ordered Location: Home kb Condition: Stable kb Diagnosis - Otitis media, unspecified, right ear kb - Unspecified perforation of tympanic membrane, left ear kb Followup: kb - With: Emergency Department - When: As needed - Reason: Worsening of condition Followup: kb - With: Private Physician - When: 2 - 3 days - Reason: Recheck today's complaints, Continuance of care, Re-evaluation by your physician Discharge Instructions: - Discharge Summary Sheet kb - Eardrum Rupture, Adult kb - Otitis Media, Adult, [id number] kb Forms: - Medication Reconciliation Form kb - Thank You Letter kb - Antibiotic Education kb - Prescription Opioid Use kb Prescriptions: - Amoxicillin 875 mg Oral Tablet - take 1 tablet by ORAL route every 12 hours for 10 days; 20 tablet; Refills: 0, kb Product Selection Permitted Signatures: Jelena Tony, SOIL CONSERVATION TEACHER-C SOIL CONSERVATION TEACHER-Ckb Jesus Echavarria MD MD cha Graham, Kristen, RN RN kg
--- NOTE | 2021-06-23 14:49 | ER ---
Nurse's Notes [facility] Name: Rosa Tony Age: 25 yrs Sex: Female : 1995 Arrival Date: 06/23/2021 Time: 14:13 Bed Waiting Private MD: Diagnosis: Otitis media, unspecified, right ear;Unspecified perforation of tympanic membrane, left ear Presentation: 06/23 14:45 Chief complaint: Patient states: Left ear pain and bleeding from left ear. Coronavirus kg screen: Vaccine status: Patient reports being unvaccinated. Client denies travel out of the [place] in the last 14 days. At this time, unable to obtain information related to travel outside the [place] Client presents with at least one sign or symptom that may indicate coronavirus-19. Standard/surgical mask placed on the client. Provider contacted for isolation considerations. Ebola Screen: Patient negative for fever greater than or equal to 101.5 degrees Fahrenheit, and additional compatible Ebola Virus Disease symptoms Patient denies exposure to infectious person. Patient denies travel to an Ebola-affected area in the 21 days before illness onset. Initial Sepsis Screen: Does the patient meet any 2 criteria? No. Patient's initial sepsis screen is negative. Does the patient have a suspected source of infection? No. Patient's initial sepsis screen is negative. Risk Assessment: Do you want to hurt yourself or someone else? Patient reports no desire to harm self or others. Onset of symptoms was June 21, 2021. 14:45 Method Of Arrival: Ambulatory kg 14:45 Acuity: MALATHI 4 kg Triage Assessment: 14:47 General: Appears in no apparent distress. Behavior is calm, cooperative, appropriate kg for age, quiet. Pain: Complains of pain in left ear. EENT: Reports pain in left ear Pain is 10 out of 10 on a pain scale. 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 - Social history:: Smoking status: Patient denies any tobacco usage or history of. Screenin:48 Abuse screen: Denies threats or abuse. Denies injuries from another. Nutritional kg screening: No deficits noted. Tuberculosis screening: No symptoms or risk factors identified. Fall Risk None identified. Vital Signs: 14:45 BP 136 / 102; Pulse 95; Resp 18; Temp 97.9(TE); Pulse Ox 100% on R/A; Weight 84.82 kg kg (R); Height 5 ft. 1 in. (154.94 cm) (R); Pain 10/10; 14:45 Body Mass Index 35.33 (84.82 kg, 154.94 cm) kg ED Course: 14:13 Patient arrived in ED. rg4 14:26 Jelena Tony FNP-C is [facility]. kb 14:26 Jesus Echavarria MD is Attending Physician. kb 14:47 Triage completed. kg 14:48 Patient has correct armband on for positive identification. kg 14:48 No provider procedures requiring assistance completed. Patient did not have IV access kg during this emergency room visit. 14:49 Arm band placed on right wrist. kg Administered Medications: No medications were administered Outcome: 14:35 Discharge ordered by MD. kb 14:48 Discharged to home ambulatory. kg 14:48 Condition: good 14:48 Discharge instructions given to patient, Instructed on discharge instructions, Demonstrated understanding of instructions, follow-up care, medications, Prescriptions given X 1. 14:49 Patient left the ED. kg Signatures: Jelena Tony FNP-C FNP-Ckb Garcia, Rubi rg4 Payal Jasso, RN RN kg
[2021-06-23 14:54] VITALS: BP 136/102; TEMP 97.9; O2SAT 100
== END 2021-06-23 14:49 | disposition home or self-care (01) ==
LOC: ER 14:11
DX: H72.92 Unspecified perforation of tympanic membrane, left ear (principal); H66.91 Otitis media, unspecified, right ear; I10 Essential (primary) hypertension
CPT/HCPCS: 99282

== ENCOUNTER 2022-11-01 07:47 | Emergency (ER) | payer OTHER ==
--- OUTSIDE RECORDS SUMMARY | 2022-11-01 07:50 | XMS REPORT | Continuity of Care Document ---
:1995 Author Organization [facility] t Address [address] [place] [address] Dr. Kruse [address] [place] [id number] Care Team Providers Name Role Phone GASPER LOBATO Primary Care Physician Unavailable NILO CARNEY Attending Clinician Unavailable Problems This patient has no known problems. Allergies, Adverse Reactions, Alerts Allergy Allergy Status Severity Reaction(s) Onset Inactive Treating Comm ents Source Name Type Date Date Clinician NO KNOWN Drug Active [facility]ERGIE [facility] Medications This patient has no known medications. Procedures This patient has no known procedures. Results This patient has no known results.
[2022-11-01 08:07] LABS: Urine Blood Negative (Negative); Urine Glucose Negative (Negative); Urine Protein 2+ (Negative); Urine pH 7.5 (5.0-7.0)
[2022-11-01] MEDS ORDERED: NA CHLORIDE 0.9% 1,000 ML ONE (08:22)
[2022-11-01 08:30] LABS: Absolute Lymphocytes (CBC) 1.3 K/uL (0.7-4.9); Hematocrit 38.7 % (36.0-45.0); Lymphocytes % 27.3 % (15.3-44.8); MCV 83.6 fL (80-100); MPV 8.5 fL (7.6-11.3); RBC Red Blood Cell Count 4.63 M/uL (3.86-4.86)
[2022-11-01 08:51] LABS: Potassium 3.7 mmol/L (3.5-5.1)
[2022-11-01] MEDS ORDERED: PROMETHAZINE INJ 25 MG/ML AMP ONE (09:13)
--- NOTE | 2022-11-01 09:38 | RAD REPORT ---
EXAM DESCRIPTION: US - Transvaginal OB - 11/01/2022 9:16 am CLINICAL HISTORY: Abd cramping, COMPARISON: Transvaginal OB dated 12/03/2017 FINDINGS: A single gestational sac is seen within the uterus. The shape of the sac is within normal limits for gestational age. Within the sac is a single pole with crown-rump length of 17 mm, co rrelating to estimated gestational age of 8 weeks 0 days. Estimated date of delivery is 06/13/2023. Heart rate is 174 BPM. The placenta is not yet developed due to early gestational age. The maternal adnexa and ovaries are within normal limits. Normal Doppler blood flow was demonstrated to both ovaries. IMPRESSION: Single live early intrauterine gestation with estimated gestational age of 8 weeks 0 day s, ARMOND 06/13/2023. No unusual or unexpected finding.
--- NOTE | 2022-11-01 10:01 | EDPHYS ---
Physician Documentation [facility] Name: Rosa Tony Age: 26 yrs Sex: Female : 1995 Arrival Date: 11/01/2022 Time: 07:52 Bed 20 Private MD: JIMENA GIBSON ED Physician Frank Carrero HPI: 11/01 08:39 This 26 yrs old Black Female presents to ER via Ambulatory with complaints of Vomiting kb - 8wks preg. 08:39 The patient presents to the emergency department with abdominal pain, described as kb crampy, vaginal bleeding, described as spotting. course: care: none, Leakage of Fluid: none appreciated, Ultrasound: the patient has not had an ultrasound. Previous pregnancies: in previous pregnancies patient has had. Associated signs and symptoms: Pertinent positives: abdominal pain, vaginal bleeding. The patient has not experienced similar symptoms in the past. The patient has not recently seen a physician. Pt reports she hasn't been able to tolerate anything by mouth for a week. Reports normal urination. Vaginal spotting and abd cramps yesterday, spotting continued today. 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 - Social history:: Smoking status: Patient denies any tobacco usage or history of. ROS: 08:36 Constitutional: Negative for fever, chills, and weight loss. kb 08:36 Abdomen/GI: Positive for nausea and vomiting, abdominal cramps. 08:36 : Positive for vaginal bleeding. 08:36 All other systems are negative. Exam: 08:36 Constitutional: This is a well developed, well nourished patient who is awake, alert, kb and in no acute distress. Head/Face: Normocephalic, atraumatic. ENT: Moist Mucous membranes Cardiovascular: Regular rate and rhythm with a normal S1 and S2. No gallops, murmurs, or rubs. No pulse deficits. Respiratory: Respirations even and unlabored. No increased work of breathing. Talking in full sentences Abdomen/GI: Soft, non-tender. No distention Skin: Warm, dry with normal turgor. Normal color. MS/ Extremity: Pulses equal, no cyanosis. Neurovascular intact. Full, normal range of motion. Neuro: Awake and alert, GCS 15, oriented to person, place, time, and situation. Moves all extremities. Normal gait. Psych: Awake, alert, with orientation to person, place and time. Behavior, mood, and affect are within normal limits. Vital Signs: 08:00 BP 139 / 97; Pulse 76; Resp 16 S; Temp 97.3(TE); Pulse Ox 100% on R/A; Weight 73.94 kg aa5 (R); Height 5 ft. 2 in. (157.48 cm) (R); Pain 0/10; 09:06 BP 118 / 81; Pulse 74; Resp 17; Pulse Ox 100% on R/A; kr3 10:00 BP 126 / 83; Pulse 74; Resp 17; Pulse Ox 100% on R/A; kr3 08:00 Body Mass Index 29.81 (73.94 kg, 157.48 cm) aa5 MDM: 07:56 Patient medically screened. kb 08:35 Data reviewed: vital signs, nurses notes. kb 08:35 Differential diagnosis: threatened Ab, morning sickness, hyperemesis gravidarum. kb 09:51 Counseling: I had a detailed discussion with the patient and/or guardian regarding: the kb historical points, exam findings, and any diagnostic results supporting the discharge/admit diagnosis, lab results, radiology results, the need for outpatient follow up, an OB/Gyne specialist, to return to the emergency department if symptoms worsen or persist or if there are any questions or concerns that arise at home. 09:59 ED course: Tolerating po intake. Pt has follow up appt scheduled with OB at [facility]. kb 11/01 08:06 Order name: Abo/rh Typing; Complete Time: 09:00 kb 11/01 08:06 Order name: Basic Metabolic Panel; Complete Time: 09:59 kb 11/01 08:06 Order name: CBC with Diff; Complete Time: 08:30 kb 11/01 08:06 Order name: Quantitative Hcg; Complete Time: 09:59 kb 01/11 08:07 Order name: Urine Dipstick-Ancillary; Complete Time: 08:10 EDMS 11/01 08:19 Order name: Urine --Ancillary (enter results) bd 11/01 08:06 Order name: US Transvaginal Ob; Complete Time: 09:40 kb 11/01 08:06 Order name: IV Saline Lock; Complete Time: 08:17 kb 11/01 08:06 Order name: Labs collected and sent; Complete Time: 08:17 kb 11/01 08:06 Order name: NPO; Complete Time: 08:16 kb 11/01 08:06 Order name: Urine Dipstick-Ancillary (obtain specimen); Complete Time: 08:16 kb 11/01 08:21 Order name: Urine --Ancillary; Complete Time: 08:30 EDMS 11/01 08:06 Order name: Urine Test (obtain specimen); Complete Time: 08:16 kb Administered Medications: 08:23 Drug: NS 0.9% 1000 ml Route: IV; Rate: 1000 ml; Site: right antecubital; kr3 10:10 Follow up: Response: No adverse reaction; IV Status: Completed infusion; IV Intake: kr3 1000ml 09:13 Drug: Phenergan (promethazine) 12.5 mg Route: IM; Site: right deltoid; kr3 10:10 Follow up: Response: No adverse reaction kr3 Disposition Summary: 11/01/22 10:00 Discharge Ordered Location: Home kb Condition: Stable kb Diagnosis - Threatened kb - Vomiting of , unspecified kb Followup: kb - With: Emergency Department - When: As needed - Reason: Worsening of condition Followup: kb - With: Private Physician - When: 2 - 3 days - Reason: Recheck today's complaints, Continuance of care, Re-evaluation by your physician Discharge Instructions: - Discharge Summary Sheet kb - Morning Sickness, [id number] kb - Threatened Miscarriage, [id number] kb - Vaginal Bleeding During , First Trimester, [id number] kb Forms: - Medication Reconciliation Form kb - Thank You Letter kb - Antibiotic Education kb - Prescription Opioid Use kb Prescriptions: - Diclegis 10-10 mg Oral tablet,delayed release (DR/EC) - take 1 tablet by ORAL route once daily As needed; 20 tablet; Refills: 0, kb Product Selection Permitted Signatures: Dispatcher [employer] EDMS Jelena Tony, ORDER ANALYST-C ORDER ANALYST-Ckb Kavitha Phan, RN RN aa5 Yasmin Gould RN RN kr3 Corrections: (The following items were deleted from the chart) 10:01 09:59 ED course: Tolerating po intake. kb kb
--- NOTE | 2022-11-01 10:01 | ER ---
Nurse's Notes [facility] Name: Rosa Tony Age: 26 yrs Sex: Female : 1995 Arrival Date: 11/01/2022 Time: 07:52 Bed 20 Private MD: JIMENA GIBSON Diagnosis: Threatened ;Vomiting of , unspecified Presentation: 11/01 08:00 Chief complaint: Patient states: vomiting x 1 week. Report being approximately 8 weeks aa5 ago, also reports vaginal spotting x 2 days ago. 08:00 Onset of symptoms was October 2022. aa5 08:00 Acuity: MALATHI 3 aa5 08:00 Initial Sepsis Screen: Does the patient meet any 2 criteria? No. Patient's initial aa5 sepsis screen is negative. Does the patient have a suspected source of infection? No. Patient's initial sepsis screen is negative. Risk Assessment: Do you want to hurt yourself or someone else? Patient reports no desire to harm self or others. 08:00 Coronavirus screen: vomiting. Ebola Screen: Patient denies travel to an Ebola-affected [facility] area in the 21 days before illness onset. 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 - Social history:: Smoking status: Patient denies any tobacco usage or history of. Assessment: 09:04 Reassessment: patient back from US. kr3 09:07 Reassessment: Patient appears in no apparent distress at this time. Patient and/or kr3 family updated on plan of care and expected duration. Pain level reassessed. Patient is alert, oriented x 3, equal unlabored respirations, skin warm/dry/pink. 10:00 Reassessment: Patient appears in no apparent distress at this time. Patient and/or kr3 family updated on plan of care and expected duration. Pain level reassessed. Patient is alert, oriented x 3, equal unlabored respirations, skin warm/dry/pink. Vital Signs: 08:00 BP 139 / 97; Pulse 76; Resp 16 S; Temp 97.3(TE); Pulse Ox 100% on R/A; Weight 73.94 kg aa5 (R); Height 5 ft. 2 in. (157.48 cm) (R); Pain 0/10; 09:06 BP 118 / 81; Pulse 74; Resp 17; Pulse Ox 100% on R/A; kr3 10:00 BP 126 / 83; Pulse 74; Resp 17; Pulse Ox 100% on R/A; kr3 08:00 Body Mass Index 29.81 (73.94 kg, 157.48 cm) aa5 ED Course: 07:52 Patient arrived in ED. am2 07:53 JIMENA GIBSON is Private Physician. am2 07:54 Jelena [facility] FNP-C [facility]. kb 07:54 Frank Carrero MD is Attending Physician. kb 07:57 Yasmin Gould, RN is Primary Nurse. kr3 08:00 Arm band placed on Patient placed in an exam room, on a stretcher. aa5 08:07 Triage completed. aa5 08:17 Inserted saline lock: 22 gauge in right antecubital area, using aseptic technique. kr3 Blood collected. 09:17 US Transvaginal Ob In Process Unspecified. EDMS Administered Medications: 08:23 Drug: NS 0.9% 1000 ml Route: IV; Rate: 1000 ml; Site: right antecubital; kr3 10:10 Follow up: Response: No adverse reaction; IV Status: Completed infusion; IV Intake: kr3 1000ml 09:13 Drug: Phenergan (promethazine) 12.5 mg Route: IM; Site: right deltoid; kr3 10:10 Follow up: Response: No adverse reaction kr3 Intake: 10:10 IV: 1000ml; Total: 1000ml. kr3 Outcome: 10:00 Discharge ordered by . kb 10:11 Patient left the ED. kr3 Signatures: Dispatcher [employer] EDMS Jelena Tony FNP-C FNP-Ckb Calderon, Audri, RN RN aa5 Su Sharpe am2 Yasmin Gould, MATTHEW CASTRO kr3
[2022-11-01 10:35] VITALS: TEMP 97.3; O2SAT 100
[2022-11-01 10:37] VITALS: BP 126/83
== END 2022-11-01 10:11 | disposition home or self-care (01) ==
LOC: ER 07:47
DX: O20.0 Threatened abortion (principal); Z3A.08 8 weeks gestation of pregnancy
CPT/HCPCS: 96361; 85025; 80048; 36415; 86900; 81025; 86901; 84702; 81003; 76817; 96360; 96372; 99284; J2550; J7030